=== PATIENT | female | born 1955 | race Two or more races ===

== ENCOUNTER 2016-08-11 16:07 | Emergency (ER) | payer SELFPAY ==
[2016-08-11 16:46] VITALS: BMI 26.9
--- NOTE | 2016-08-11 17:22 | EDPRACDOC ---
- General Information Chief Complaint: Headache Stated Complaint: FALL ON ICE 2WKS AGO MULTIPLE COMPLAINTS Time Seen by Provider: 08/11/16 17:01 Information Source: Patient, Family Mode Of Arrival: Car Home Medications: Home Medications Hydrocodone Bit/Acetaminophen [Hydrocodon-Acetaminophen 5-325] 1 tab PO Q6H PRN #14 tab 08/11/16 Meclizine HCl [Antivert] 25 - 50 mg PO Q6 #30 tablet 08/11/16 Ondansetron [Zofran Odt] 4 mg PO Q6H #20 tab.rapdis 08/11/16 Allergies/Adverse Reactions: Allergies Allergy/AdvReac Type Severity Reaction Status Date / Time No Known Allergies Allergy Verified 08/11/16 17:22 - History of Present Illness Onset: 07/27/15 HPI: PT STATES SHE FELL ON 07/27/16 IT BACK OF HEAD AND EVER SINCE HAS BEEN HAVING HEADACHES DIZZINESS NAUSEA AND INTERMITTENT BLURRY VISION. STATES WHEN SHE LAYS DOWN THE ROOM STARTS TO SPIN. PER FAMILY PT HAD +LOC FOR APPROX 30 MINUTES. Location: Reports: Generalized Pain Quality: Reports: Moderate, Pressure, Throbbing Relevant History of: Reports: None Associated Signs and Symptoms: Reports: Frequent Headaches (SINCE INJURY), Confusion (MILD SINCE HEAD INJURY), Nausea/Vomiting (NAUSEA NO VOMITING), Vision Changes (INTERMITTENT BLURRY VISION) ED Past Medical History - History Reviewed Yes Nurses notes reviewed and agree except as marked Travel Outside of [place] in the Last 3 Months?: No No Past Medical History: Yes Patient has no past medical history - Patient Medical History Neurological History: Reports: No Significant History Surgical History: Reports: Hysterectomy - Social Medical History ETOH: None Substance Abuse: None Lives With: Other Lives In: Home EDM Review of Systems - Review of Systems ROS Negative Except as Marked: Yes All systems reviewed and were negative except as marked Constitutional: No Symptoms Reported. negative: Fever, Chills, Weakness, Fatigue, Loss of Appetite Eyes: Blurred Vision (INTERMITTENT BILATERAL). negative: Double Vision, Discharge, Light Sensitive, Pain, Photophobia, Redness Ears: Tinnitus. negative: Drainage, Ear Pulling, Hearing Loss, Pain Throat: No Symptoms Reported. negative: Pain, Swelling Nose: No Symptoms Reported. negative: Congestion, Bleeding, Discharge, Injection, Swelling, Deformity, Ecchymosis, Tender, Abrasion, Laceration Mouth: No Symptoms Reported. negative: Pain, Drooling Respiratory: No Symptoms Reported. negative: Cough, Brassy Cough, Barky Cough, Shortness of Breath, Wheezing, Hemoptysis Cardiovascular: No Symptoms Reported. negative: Chest Pain, Palpitations, Syncope, Edema, Orthopnea, PND, Skin Mottling, Cyanosis Gastrointestinal: Nausea. negative: Constipation, Diarrhea, Formula Intolerance , Melena, Pain, Vomiting Genitourinary: No Symptoms Reported. negative: Dysuria, Hematuria, Frequency, Discharge, Bleeding, Testicular Pain, Neurological: Headache, Vertigo (WHEN LAYING DOWN), Memory Changes (PER FAMILY) . negative: Dizziness, Gait Difficulty, Numbness, Seizure, Speech Difficulty, Weakness Musculoskeletal: No Symptoms Reported. negative: Neck, Chestwall, Ribs, Back, Shoulder, Arm, Elbow, Forearm, Wrist, Hand, Pelvis, Hip, Femur, Knee, Leg, Ankle , Foot Integumentary: No Symptoms Reported. negative: Itching, Rash, Bruising, Wound Allergic/Immunologic: No Symptoms Reported. negative: Hives, Itching Hematologic: No Symptoms Reported. negative: Lymphadenopathy, Easy Bruising, Easy Bleeding Endocrine: No Symptoms Reported. negative: Weight Gain, Weight Loss Psychiatric: No Symptoms Reported. negative: Anxiety, Depression, Hallucinations, Insomnia, Suicidal - Physical Exam Constitutional: No apparent distress, Alert (Awake) Oriented to: Time, Person, Place Last recorded Vital Signs: Last Vital Signs Temp 98.7 F 08/11/16 16:43 Pulse 72 08/11/16 16:43 Resp 20 08/11/16 16:43 BP 125/77 08/11/16 16:43 Pulse Ox 97 08/11/16 16:43 Oxygen Pulse Oxygen Saturation 97 O2 Device Room Air Oxygen Flow Rate Fraction of Inspired Oxygen ( FIO2) - HEENT Head: Normal ( normocephalic) Eye Exam: Normal (PERRL, EOMI, Sclera white) Oropharynx: Normal (Pharynx:Moist without exudate,Gums-no swelling) Tympanic Membrane: Normal ENT EAC: Normal TMJ: Normal Nose: No Symptoms Reported (septum midline) Neck: Normal (FROM, trachea at midline) - Respiratory/Cardiovascular Respiratory: Normal - CTA (BBS clear to auscultation without adventitious sounds ) Cardiovascular: Normal (RRR without murmur, gallop or rub) - GI Auscultation: Normal (NABS) Palpation: Normal (Soft,No rebound or guarding, non distended) Tenderness: Non tender Borrego's Sign: Negative - Musculoskeletal Back: Normal (Non-Tender) Extremities: Normal (Normal tone, Pulses 2+ No cyanosis or edema, FROM) - Integumentary Skin: Normal, Warm, Dry Lymphatics: Normal (no adenopathy) - Neurologic Memory Impaired: Normal Motor Function: Normal (Normal tone, Pulses 2+ No cyanosis or edema, FROM) Cranial Nerve: Normal (CN II-X11 intact sensation, strength 5/5) Cerebellar: Normal Mood Description: Normal Perception: Normal - Differential Diagnosis Skull Fracture, ICH, SDH, Other (POST CONCUSSIVE SYNDROME) - Diagnostic Imaging CT HEAD Image interpreted by: Radiologist Diagnostic Imaging Comments: IMPRESSION: Negative head CT. Decision Time to Discharge: 17:56 - Departure Disposition: Home Condition: Stable Final Diagnosis: Post concussive syndrome Instructions: Post Concussion Syndrome (ED) Education/Counseling Given To: Patient, Family Member Education/Counseling Given Regarding: Diagnosis, Treatment, Prognosis, Follow Up Referrals: None,No Provider [Primary Care Provider] - One Week Vasquez Mckay MD [NonStaff] - One Week Prescriptions: Hydrocodone Bit/Acetaminophen [Hydrocodon-Acetaminophen 5-325] 1 tab PO Q6H PRN #14 tab PRN Reason: Pain Meclizine HCl [Antivert] 25 - 50 mg PO Q6 #30 tablet Ondansetron [Zofran Odt] 4 mg PO Q6H #20 tab.brandy
--- NOTE | 2016-08-11 17:50 | DIRPT ---
CLINICAL DATA: Status post fall on the ice 2 weeks ago with a blow to the head. Continued headache. Initial encounter. EXAM: CT HEAD WITHOUT CONTRAST TECHNIQUE: Contiguous axial images were obtained from the base of the skull through the vertex without intravenous contrast. COMPARISON: None. FINDINGS: There is no evidence of acute intracranial abnormality including hemorrhage, infarct, mass lesion, mass effect, midline shift or abnormal extra-axial fluid collection. The calvarium is intact. Imaged paranasal sinuses and mastoid air cells are clear. IMPRESSION: Negative head CT. Electronically Signed By: Moshe Hines M.D. On: 08/11/2016 17:47
[2016-08-11 18:12] VITALS: BP 133/65; PULSE 60; TEMP 98.4
== END 2016-08-11 18:25 | disposition home or self-care (01) ==
LOC: EDMC 16:07
DX: F07.81 Postconcussional syndrome (principal)
CPT/HCPCS: 70450; 99282